=== PATIENT | male | born 1935 | race Caucasian/White ===

== ENCOUNTER 2017-09-22 20:34 | Emergency (ER) | payer OTHER ==
[~2017-09-22] VITALS: Ht 165.1 cm; Wt 66.2 kg
[2017-09-22] MEDS ORDERED: TAMS0.4C (21:03)
[2017-09-22] MEDS ORDERED: OMEPRAZOLE20 M1 (21:03)
[2017-09-22] MEDS ORDERED: AMPICILLIN 500 MG (21:05)
== END 2017-09-22 22:49 | disposition home or self-care (01) ==
LOC: ER 20:34
DX: N43.2 Other hydrocele (principal); N50.89 Other specified disorders of the male genital organs; N45.2 Orchitis